=== PATIENT | male | born 1950 | race Caucasian/White ===

== ENCOUNTER 2021-11-11 09:56 | Inpatient (IN) ==
[2021-11-11] MEDS ORDERED: METOPROLOL TARTRATE 1 MG/ML VIAL IV STA ×2 (10:21→11:13)
[2021-11-11 10:32] LABS: Basophils # (auto) 0.08 K/uL (0-0.2); Basophils % (auto) 1.1 %; Eosinophils # (auto) 0.15 K/uL (0-0.50); Eosinophils % (auto) 2.1 %; Hematocrit (blood only) 43.1 % (40.1-51.0); Hemoglobin 14.3 g/dl (14.0-18.0); Immature Granulocytes # (auto) 0.01 K/uL (0.00-0.02); Immature Granulocytes % (auto) 0.1 %; Lymphocytes # (auto) 1.45 K/uL (1.2-3.4); Lymphocytes % (auto) 20.5 %; Mean Corpuscular Hemoglobin 29.7 pg (25.0-34.0); Mean Corpuscular Hgb Conc 33.2 g/dL (32.0-36.0); Mean Corpuscular Volume 89.6 fL (80.0-100.0); Mean Platelet Volume 11.4 fL (9.4-12.4); Monocytes # (auto) 0.51 K/uL (0.24-0.82); Monocytes % (auto) 7.2 %; Neutrophils # (auto) 4.89 K/uL (1.4-6.5); Platelet Count 239 K/uL (130-400); RDW Standard Deviation 42.5 fL (36.4-46.3); Red Blood Count 4.81 M/uL (4.63-6.08); White Blood Count 7.09 K/ul (4.8-10.8)
[2021-11-11 10:44] LABS: Partial Thromboplastin Time 28.2 Seconds (21.0-31.0); Prothrombin Time 10.7 Seconds (9.0-12.0)
[2021-11-11 10:48] LABS: Albumin Level 4.5 gm/dl (3.4-5.0); BUN Creatinine Ratio 29.5 (10-20); Bilirubin,Total 0.6 mg/dl (0.2-1.0); Calcium 9.2 mg/dl (8.5-10.1); Creatinine Clr Calc Pharmacy 101.8 ml/min; Est GFR (African American) 114.8 ml/min; Est GFR (Non-African American) 99.1 ml/min; Globulin 2.2 gm/dl (2.5-4.0); Magnesium 2.1 mg/dl (1.7-2.4); Potassium 4.4 mmol/L (3.5-5.1); Total Protein 6.7 gm/dl (6.0-8.3)
[2021-11-11 10:52] LABS: Troponin I High Sensitivity 7.6 pg/ml (0-20)
[2021-11-11] MEDS ORDERED: SODIUM CHLORIDE 0.9% 1000ML 250 ML IV ONE (11:13)
[2021-11-11] MEDS ORDERED: Heparin IV Adult Wt-Based Low-Dose WITH Bolus Protocol IV STA (11:42)
[2021-11-11] MEDS ORDERED: HEPARIN SOD (PORCINE) 1000 UNIT/ML IV ONE (11:57)
[2021-11-11] MEDS ORDERED: HEPARIN SODIUM/DEXTROSE 25,000 UNITS/500 ML BAG IV SCH (12:00)
--- NOTE | 2021-11-11 12:31 | History & Physical Report ---
Date of Service November 11, 2021 Assessment & Plan (1) Atrial flutter with rapid ventricular response: (2) Paroxysmal atrial fibrillation: Plan: Patient is 71 y/o M with PMH paroxysmal atrial fibrillation s/p pulmonary vein isolation ablation in 06/2013 and 05/2014 no longer on anticoagulation presented to ER with c/o rapid heart rate x 1 day. Reports chronic exertional SOB. Denies CP, current SOB, dizziness In ER Pulse in 140's, BP 121/78. Was given total 5mg metoprolol tartrate IV with continued HR 140 and BP 92/77. No significant electrolyte abnormality and TSH WNL. EKG appears to be atrial flutter, rate 145 At rest patient denies symptoms Heparin drip started Will start Cardizem drip with pt's continued elevated HR CXR pending. Pt initially denied Echo Lyme titer Cardiology consult CBC, BMP in am History of Present Illness Chief Complaint: Rapid heart rate Primary Care Provider: Jann Wilde MD Patient is 71 y/o M with PMH paroxysmal atrial fibrillation s/p pulmonary vein isolation ablation in 06/2013 and 05/2014 presented to ER with c/o rapid heart rate x 1 day. Patient states is physically active and works in the [employer]. States yesterday he had to drive a lot and was feeling tired so he stopped and got a large soda. Last night started feeling like his heart was racing and repo rts checked his pulse and it was 145. Denies any associated dizziness, chest pain, shortness of breath. Does report SOB with walking up hills but denies any current SOB or increased SOB since elevated heart rate. He has tried breathing techniques and Valsalva maneuver without relief. He also states that he took total 3 OTC magnesium tabs (unknown dose) since yesterday and one potassium tablet he had from previous prescription in case his electrolytes were low. He reports past history of rapid a-fib and in past has been more symptomatic with sensation of tachyarrhythmia and fatigue. He is not on any prescription medication. Previously on metoprolol 12.5mg BID however patient reports has not taken for years. States tick bite in spring but denies any recent known tick bites. Denies fever/chills, diaphoresis, N/V/D/C, PEOPLES, dizziness, syncope, vision changes, neck pain, CP, orthopnea, In cough, sore throat, choking, otalgia, rhinorrhea, abdominal pain, paresthesias, weakness, extremity weakness, extremity edema, rashes, urinary symptoms. In ER Pulse in 140's, BP 121/78. Was given total 5mg metoprolol tartrate IV with continued HR 140 and BP 92/77. At rest patient denies symptoms. No significant electrolyte abnormality and TSH WNL. Allergies Allergy/AdvReac Type Severity Reaction Status Date / Time No Known Allergies Allergy Unknown Verified 02/23/19 10:22 Past Med/Surg History Medical History (Updated 11/11/21 @ 13:31 by Tamara Witt PA-C) Paroxysmal atrial fibrillation Surgical History (Updated 11/11/21 @ 13:32 by Tamara Witt PA-C) History of appendectomy Hx of tonsillectomy S/P ablation of atrial flutter Family History (Updated 11/11/21 @ 13:31 by Tamara Witt PA-C) Father Stroke Diabetes Prostate cancer Mother Hypertension Social History (Updated 11/11/21 @ 13:31 by Tamara Witt PA-C) Smoking Status: Never smoker Hx Alcohol Use: No Hx Substance Use: No Preferred Language: Nepalese Feels Safe at Home: Yes Review of Systems Review of Systems: All systems reviewed & are unremarkable except as noted in HPI & below Physical Exam Physical Exam: General: no distress, thin elderly male Head: normocephalic, atraumatic Eyes: PERRL, EOM's intact, conjunctiva non-injected, anicteric ENT: normal inspection external ears, nose, mucous membranes moist Neck: supple, trachea midline Lungs: clear, no respiratory distress, no wheezing/rhonchi/rales CV: tachycardia, rate 140, regular rhythm, no pretibial edema Abd: normal BS, soft, non-tender Ext: no cyanosis, no calf tenderness Neuro: A&O x 3, no focal deficits noted, normal affect Skin: warm, dry Results & Data Results & Data ([facility]) Vital Signs (Past 12 Hours) Vital Signs Temp Pulse Pulse Resp BP BP Pulse Ox 11/11/21 12:20 139 H 18 92/77 L 98 11/11/21 11:35 105 H 18 91/60 L 98 11/11/21 10:58 140 H 18 100/83 98 08/31/22 10:22 143 H 20 132/98 99 11/11/21 10:22 99 11/11/21 10:18 11/11/21 09:59 36.1 C L 145 H 20 121/78 98 O2 Del Method 11/11/21 12:20 Room Air 11/11/21 11:35 Room Air 11/11/21 10:58 Room Air 11/11/21 10:22 Room Air 11/11/21 10:22 Room Air 11/11/21 10:18 Room Air 11/11/21 09:59 Room Air Laboratory Results Short CBC 11/11/21 Range/Units 10:08 WBC 7.09 (4.8-10.8) K/ul Hgb 14.3 (14.0-18.0) g/dl Hct 43.1 (40.1-51.0) % Plt Count 239 (130-400) K/uL BMP 11/11/21 10:08 Sodium 139 Potassium 4.4 Chloride 105 Carbon Dioxide 28 BUN 18 Creatinine 0.61 Glucose 88 Calcium 9.2 Liver Function 11/11/21 Range/Units 10:08 Total Bilirubin 0.6 (0.2-1.0) mg/dl AST 21 (13-39) U/L ALT 14 (7-52) U/L Alkaline Phosphatase 79 (34-104) U/L Albumin 4.5 (3.4-5.0) gm/dl Code Status & VTE Plan VTE Prophylaxis Plan VTE Prophylaxis will be ordered: Yes Supervising Physician Co-Signing Physician Notes Attending addendum: The patient was seen and examined in the emergency room. He is a 71 y/o M with PMH paroxysmal atrial fibrillation s/p pulmonary vein isolation ablation in 06/2013 and 05/2014 and has not been on any anticoagulation and other medications for the last 3 years. Has been complaining of shortness of breath with exertion and weakness for about a day or 2 and noted to have atrial flutter with rapid ventricular rate in the emergency room He denies any palpitation, chest pain, dizziness, no swelling of the legs and no shortness of breath at rest On examination Lying in bed comfortably Hemodynamically stable with blood pressure on the lower side at around 100 systolic Chest-increasing anteroposterior diameter. Clear to auscultate bilaterally Heart-S1-S2, regular with tachycardia Abdomen-benign Extremities-no edema His admission labs, EKG reviewed. Chest x-ray is pending Has a flutter with RVR with history of PAF status post ablation in around 2013 He has been started with intravenous heparin and also intravenous Cardizem and beta-jayshree to control heart rate Cardiology has been consulted Reviewed with assessment and plan as outlined above by LEONEL Dang Dr
--- NOTE | 2021-11-11 13:10 | Emergency Department Note ---
Impression & Plan Atrial flutter with rapid ventricular response ED Provider Note INFORMANT: Patient ED PROVIDER(S): Ronaldo Christopher MD CHIEF COMPLAINT: Tachycardia PLAN: Disposition: Admitted Condition: Good Outpatient prescription management: none Referral: None MEDICAL DECISION MAKING: Patient present because of tachycardia. He has a history of atrial fibrillation. ECG was performed and cardiac monitoring. It appeared he was in atrial flutter. He was given 2 doses of IV Lopressor as well as normal saline. He did achieve better rate control and had a variable block flutter. His CBC, chemistry panel, troponin and magnesium were unremarkable. I did consult with [facility] cardiology, Dr. Cervantes. He recommended IV heparin and admission by the hospitalist service for evaluation and rhythm control. I did order the IV heparin. Patient was updated and in agreement with the plan. Consultation was placed with the [facility] hospitalist service. Patient was evaluated in the ER admitted for further management. Triage Nursing notes reviewed and agree them. Vital Signs: reviewed and remarkable for tachycardia Differential diagnosis: Premature contractions, electrolyte abnormality, cardiac dysrhythmia, thyroid dysfunction, pulmonary embolism, infection, gastrointestinal, as well as other pathologies. Diagnostics interpreted by me: ECG: Twelve-lead ECG reveals atrial flutter at [address] elevation. No PVCs. Normal axis. Cardiac Monitoring: Cardiac monitoring ordered by me: The patient was placed on continuous cardiac monitoring and observed. It revealed atrial flutter with variable block and occasional PVCs at 113 bpm. Imaging studies: Patient refused chest x-ray HPI: The patient is a 71year old male with a history of atrial fibrillation and a ablation x2 who presents to the Emergency Room with complaints of tachycardia. This started possibly yesterday and is persistent. Patient notes his heart rate was around 145 yesterday today. The patient also notes the following associated symptoms, minimal shortness of breath. The patient has taken no medication for relieving factors. Current pain is rated as 0/10. Denies recent illnesses. Pt denies LOC, headache, fevers, chills, diaphoresis, visual changes, neck pain, chest pain, nausea, vomiting, abdominal pain, back pain, melena, hematochezia, urinary symptoms, numbness, weakness, lymphadenopathy, rash, or other complaints. ROS: See above HPI for pertinent positives & negatives. A total of 10 systems reviewed and were otherwise negative. PAST MEDICAL HISTORY:See Below , atrial fibrillation PAST SURGICAL HISTORY:See Below, ablation FAMILY HISTORY:See Below SOCIAL HISTORY:See Below, employed as a [employer] HOME MEDICATIONS:See Below ALLERGIES:See Below VITALS:See Below PHYSICAL EXAMINATION: GENERAL: Awake, alert, well-appearing, in no distress HENT: Normocephalic, atraumatic. Oropharynx unremarkable. EYES: Normal conjunctiva. Sclera non-icteric. NECK: Inspection normal. Non-tender. Supple. No nuchal rigidity. FROM. No masses. RESPIRATORY: Clear to auscultation. No wheezes. No rales. Normal respiratory effort. CARDIAC: Tachycardic rate. Regular rhythm. No murmurs. No rubs. Extremities warm and well perfused. Pulses equal. No JVD. GI: Soft, non-distended. No tenderness to palpation. No rebound or guarding. No masses. RECTAL: Deferred. MUSCULOSKELETAL: Atraumatic. Chest examination reveals no tenderness. The back is symmetrical on inspection without obvious abnormality. There is no CVA tenderness to palpation. No joint edema. LOWER EXTREMITIES: Calves are equal size bilaterally and non-tender. No edema. No discoloration. NEURO: Normal sensorium. No sensory or motor deficits noted. SKIN: No rash or jaundice noted. CRITICAL CARE: I have personally spent greater than 35 minutes of critical care time in the direct management of this patient. This includes bedside care, interpretation of diagnostic studies, and testing, discussion with consultants, patient, and other required patient management activities. These minutes are in excess of all separately billable procedures. Ronaldo Christopher MD Past Med/Surg History Medical History (Updated 11/11/21 @ 13:31 by Tamara Witt PA-C) Paroxysmal atrial fibrillation Surgical History (Updated 11/11/21 @ 13:32 by Tamara Witt PA-C) History of appendectomy Hx of tonsillectomy S/P ablation of atrial flutter Family History (Updated 11/11/21 @ 13:31 by Tamara Witt PA-C) Father Stroke Diabetes Prostate cancer Mother Hypertension Social History (Updated 11/11/21 @ 13:31 by Tamara Witt PA-C) Smoking Status: Never smoker Hx Alcohol Use: Yes Hx Substance Use: No Preferred Language: Australian Retail Supervisor Required: No Beliefs That Will Affect Care: None Current Living Situation: Significant Other Other Information That Helps Us Care for You: No Feels Safe at Home: Yes Allergies Allergies Allergy/AdvReac Type Severity Reaction Status Date / Time No Known Allergies Allergy Unknown Verified 02/23/19 10:22 Home Meds Previous Rx's Medication Instructions Recorded cyclobenzaprine 5 mg tablet 5 mg PO TID PRN muscle spasm #10 06/21/20 tabs Results & Data (ED) Vital Signs Vital Signs - 24 hr 11/11/21 09:59 11/11/21 10:18 11/11/21 10:22 Temperature 36.1 C L Temperature Source Temporal Artery Scan Pulse Rate 145 H Pulse Rate [Apical] Pulse Rhythm Regular Pulse Strength Normal Respiratory Rate 20 Respiratory Effort / Characteristics Non-Labored Spontaneous Non-Labored Spontaneous Respiratory Depth Normal Normal Respiratory Pattern Regular Regular Blood Pressure 121/78 Blood Pressure [Right Arm] Blood Pressure Mean 92 Blood Pressure Mean [Right Arm] Blood Pressure Position Sitting Blood Pressure Position [Right Arm] Pulse Oximetry 98 99 Oxygen Delivery Method Room Air Room Air Room Air Sepsis Recent Fever Within 48 Hours No Sepsis New/Unexplained Change in Mental Status No Sepsis Action Taken by Nursing No Action Required 11/11/21 10:22 11/11/21 10:58 11/11/21 11:35 Temperature Temperature Source Pulse Rate Pulse Rate [Apical] 143 H 140 H 105 H Pulse Rhythm Pulse Strength Respiratory Rate 20 18 18 Respiratory Effort / Characteristics Non-Labored Spontaneous Non-Labored Spontaneous Non-Labored Spontaneous Respiratory Depth Normal Normal Normal Respiratory Pattern Blood Pressure Blood Pressure [Right Arm] 132/98 100/83 91/60 L Blood Pressure Mean Blood Pressure Mean [Right Arm] 109 88 70 Blood Pressure Position Blood Pressure Position [Right Arm] Lying Pulse Oximetry 99 98 98 Oxygen Delivery Method Room Air Room Air Room Air Sepsis Recent Fever Within 48 Hours Sepsis New/Unexplained Change in Mental Status Sepsis Action Taken by Nursing 11/11/21 12:20 Temperature Temperature Source Pulse Rate Pulse Rate [Apical] 139 H Pulse Rhythm Pulse Strength Respiratory Rate 18 Respiratory Effort / Characteristics Non-Labored Spontaneous Respiratory Depth Normal Respiratory Pattern Blood Pressure Blood Pressure [Right Arm] 92/77 L Blood Pressure Mean Blood Pressure Mean [Right Arm] 82 Blood Pressure Position Blood Pressure Position [Right Arm] Lying Pulse Oximetry 98 Oxygen Delivery Method Room Air Sepsis Recent Fever Within 48 Hours Sepsis New/Unexplained Change in Mental Status Sepsis Action Taken by Nursing Laboratory Data Result diagrams: 11/11/21 10:08 11/11/21 10:08 Lab Results 11/11/21 11/11/21 11/11/21 Range/Units 10:08 10:08 10:08 WBC 7.09 (4.8-10.8) K/ul RBC 4.81 (4.63-6.08) M/uL Hgb 14.3 (14.0-18.0) g/dl Hct 43.1 (40.1-51.0) % MCV 89.6 (80.0-100.0) fL MCH 29.7 (25.0-34.0) pg MCHC 33.2 (32.0-36.0) g/dL RDW Std Deviation 42.5 (36.4-46.3) fL RDW Coeff of Quynh 13.0 (11.5-14.5) % Plt Count 239 (130-400) K/uL MPV 11.4 (9.4-12.4) fL Immature Gran % (Auto) 0.1 % Neut % (Auto) 69.0 % Lymph % (Auto) 20.5 % Island % (Auto) 7.2 % Eos % (Auto) 2.1 % Baso % (Auto) 1.1 % Neut # (Auto) 4.89 (1.4-6.5) K/uL Lymph # (Auto) 1.45 (1.2-3.4) K/uL Island # (Auto) 0.51 (0.24-0.82) K/uL Eos # (Auto) 0.15 (0-0.50) K/uL Baso # (Auto) 0.08 (0-0.2) K/uL Immature Gran # (Auto) 0.01 (0.00-0.02) K/uL PT 10.7 (9.0-12.0) Seconds INR 1.0 (0.9-1.1) APTT 28.2 (21.0-31.0) Seconds PTT Ratio 1.0 Sodium 139 (136-145) mmol/L Potassium 4.4 (3.5-5.1) mmol/L Chloride 105 (98-107) mmol/L Carbon Dioxide 28 (21-32) mmol/L Anion Gap 6 (3-11) BUN 18 (6-23) mg/dl Creatinine 0.61 (0.6-1.4) mg/dl Est Cr Clr Drug Dosing 101.8 ml/min Est GFR ( Amer) 114.8 ml/min Est GFR (Non-Af Amer) 99.1 ml/min BUN/Creatinine Ratio 29.5 H (10-20) Glucose 88 (70-99(Fasting)) mg/dl Calcium 9.2 (8.5-10.1) mg/dl Magnesium 2.1 (1.7-2.4) mg/dl Total Bilirubin 0.6 (0.2-1.0) mg/dl AST 21 (13-39) U/L ALT 14 (7-52) U/L Alkaline Phosphatase 79 (34-104) U/L Troponin I High Sens 7.6 (0-20) pg/ml Total Protein 6.7 (6.0-8.3) gm/dl Albumin 4.5 (3.4-5.0) gm/dl Globulin 2.2 L (2.5-4.0) gm/dl Albumin/Globulin Ratio 2.0 (0.9-2) TSH (0.300-4.500) uIu/ml Lyme Disease IgG Ab (Negative) Lyme Disease IgM Ab (Negative) SARS-CoV-2, RNA, NAAT (NEGATIVE) 11/11/21 11/11/21 11/11/21 Range/Units 10:08 10:08 10:29 WBC (4.8-10.8) K/ul RBC (4.63-6.08) M/uL Hgb (14.0-18.0) g/dl Hct (40.1-51.0) % MCV (80.0-100.0) fL MCH (25.0-34.0) pg MCHC (32.0-36.0) g/dL RDW Std Deviation (36.4-46.3) fL RDW Coeff of Quynh (11.5-14.5) % Plt Count (130-400) K/uL MPV (9.4-12.4) fL Immature Gran % (Auto) % Neut % (Auto) % Lymph % (Auto) % Island % (Auto) % Eos % (Auto) % Baso % (Auto) % Neut # (Auto) (1.4-6.5) K/uL Lymph # (Auto) (1.2-3.4) K/uL Island # (Auto) (0.24-0.82) K/uL Eos # (Auto) (0-0.50) K/uL Baso # (Auto) (0-0.2) K/uL Immature Gran # (Auto) (0.00-0.02) K/uL PT (9.0-12.0) Seconds INR (0.9-1.1) APTT (21.0-31.0) Seconds PTT Ratio Sodium (136-145) mmol/L Potassium (3.5-5.1) mmol/L Chloride (98-107) mmol/L Carbon Dioxide (21-32) mmol/L Anion Gap (3-11) BUN (6-23) mg/dl Creatinine (0.6-1.4) mg/dl Est Cr Clr Drug Dosing ml/min Est GFR ( Amer) ml/min Est GFR (Non-Af Amer) ml/min BUN/Creatinine Ratio (10-20) Glucose (70-99(Fasting)) mg/dl Calcium (8.5-10.1) mg/dl Magnesium (1.7-2.4) mg/dl Total Bilirubin (0.2-1.0) mg/dl AST (13-39) U/L ALT (7-52) U/L Alkaline Phosphatase (34-104) U/L Troponin I High Sens (0-20) pg/ml Total Protein (6.0-8.3) gm/dl Albumin (3.4-5.0) gm/dl Globulin (2.5-4.0) gm/dl Albumin/Globulin Ratio (0.9-2) TSH 3.431 (0.300-4.500) uIu/ml Lyme Disease IgG Ab Positive A (Negative) Lyme Disease IgM Ab Negative (Negative) SARS-CoV-2, RNA, NAAT NEGATIVE (NEGATIVE) Administered Medications Heparin Sodium/Dextrose (Heparin Sodium/Dextrose) 25,000 units in 500 mls @ 16 mls/hr IV .Q24H [facility]; Protocol Stop: 12/11/21 11:59 Last Admin: 11/11/21 12:21 Dose: 800 units/hr, 16 mls/hr Documented By: DAVID Co-signed By: DAVID(2) Diltiazem HCl 125 mg/ Dextrose 125 mls @ 5 mls/hr IV .Q24H [facility]; Protocol Stop: 12/11/21 13:29 Last Admin: 11/11/21 14:39 Dose: 5 mg/hr, 5 mls/hr Documented By: ALONSO Co-signed By: AM Discontinued Medications Heparin Sodium (Porcine) (Heparin Sod (Porcine) 1000 Unit/Ml) 1 units IV NOW ONE Stop: 11/11/21 11:58 Last Admin: 11/11/21 12:23 Dose: 4,000 units Documented By: DAVID Co-signed By: DAVID(2) Heparin Sodium/Dextrose (Heparin Iv Adult Wt-Based Low-Dose With Bolus Protocol) 1 each IV NOW STA; Protocol Stop: 11/11/21 11:43 Last Admin: 11/11/21 12:23 Dose: Not Given Documented By: DAVID Sodium Chloride (Nss 1000ml) 250 mls @ 999 mls/hr IV .Q16M ONE Stop: 11/11/21 11:28 Last Infusion: 11/11/21 11:35 Dose: 0 mls/hr Documented By: Admin: 11/11/21 11:17 Dose: 999 mls/hr Documented By: DAVID Metoprolol Tartrate (Metoprolol Tartrate 1 Mg/Ml Vial) 2.5 mg IV NOW STA Stop: 11/11/21 10:22 Last Admin: 11/11/21 10:29 Dose: 2.5 mg Documented By: DAVID Metoprolol Tartrate (Metoprolol Tartrate 1 Mg/Ml Vial) 2.5 mg IV NOW STA Stop: 11/11/21 11:14 Last Admin: 11/11/21 11:17 Dose: 2.5 mg Documented By: DAVID Discharge Plan Visit Data Chief Complaint: Tachycardia Stated Complaint: 140 BPM HEART RATE ED Provider: Ronaldo Christopher Discharge Problem: Atrial flutter with rapid ventricular response Patient Disposition: Admitted As Inpatient Discharge Instructions Interventions: ED Discharge Assessment Last Done: 11/11/21 13:00
[2021-11-11] MEDS ORDERED: STAT IV Infusion **Titration per Protocol STA (13:21)
[2021-11-11] MEDS ORDERED: dilTIAZem HCL 125 MG in DEXTROSE 5% 100 ML IV SCH (13:30)
[2021-11-11] MEDS ORDERED: POLYETHYLENE (MIRALAX) 17 GM PACK PO PRN (14:37)
[2021-11-11] MEDS ORDERED: ACETAMINOPHEN 325 MG TAB PO PRN (14:37)
[2021-11-11] MEDS ORDERED: ONDANSETRON INJ 2 MG/ML 2 ML VIAL IV PRN (14:37)
[2021-11-11 14:54] LABS: Lyme Ab IgM w/WB Rflx Negative (Negative)
[2021-11-11 15:00] LABS: Lyme Ab IgG w/WB Rflx Positive (Negative)
[2021-11-11] MEDS ORDERED: PNEUMOCOCCAL POLYSACCHARIDES 25 MCG/0.5 ML VIAL/SYR IM ONE (15:07)
--- NOTE | 2021-11-11 15:36 | Cardiology Consultation ---
Date of Consultation November 11, 2021 Assessment & Plan (1) Atrial flutter with rapid ventricular response: (2) Paroxysmal atrial fibrillation: (3) Cardiomyopathy: Plan The pathophysiology and treatment options for atrial flutter were discussed with at great lengths. Given his reduced LV systolic function I suspect that he is likely been in this for quite some time and is at high risk of having a left atrial thrombus. So at this time, I believe most prudent course of action would be to get him rate controlled and anticoagulated. He is not overly symptomatic at this time with the flutter and think he should be anticoagulated for 30 days and seen by our electrophysiology colleagues as an outpatient to discuss an atrial flutter ablation after the 30-day lolita. He is in agreement with this plan. I will change his beta-jayshree to evidence-based beta-jayshree in the a.m. after seeing how he responds to 25 mg of metoprolol tartrate this evening. His heparin will be continued and we will change to Eliquis in the a.m. Cardizem drip should be titrated to off. History of Present Illness Reason for Consultation: atrial flutter with rvr Requesting Physician: WENDY Attending Physician: Jermaine Waters MD History of Present Illness It was my pleasure to see in cardiac consultation today November 11, 2021. He is a very pleasant 71-year-old gentleman who was previously following with us in the cardiology clinic for his history of atrial fibrillation status post ablation x2 at the [facility]. He has been asymptomatic and he believes in normal sinus rhythm since 2016 and has not needed to be seen since. He presented to [facility] emergency department after checking his pulse and feeling that his heart was racing. He notes that he started a new job this summer and has been doing a lot of driving, the other day he had a long drive ahead of him and he uncharacteristically had an extra cup of coffee in the afternoon. Afterwards he states he just did not feel right and was more fatigued than normal. Later on that night he checked his pulse and noted to be in the 140s. Upon presentation emergency department he was found to be in atrial flutter with rapid ventricular response. Upon further questioning, he admits that he has been short of breath with exertion over the last several months. He initially chalked this up to working outside during the hot summer months with a new job. He denies any other complaints of chest pain, palpitations, lightheadedness or dizziness. Past medical history: 1. Paroxysmal AFib/flutter. 2. Status post pulmonary vein isolation ablation in June 2013 with redo May 2014 with now long-term success. Allergies Allergy/AdvReac Type Severity Reaction Status Date / Time No Known Allergies Allergy Unknown Verified 02/23/19 10:22 Patient History Medical History Paroxysmal atrial fibrillation Surgical History History of appendectomy Hx of tonsillectomy S/P ablation of atrial flutter Family History Father Stroke Diabetes Prostate cancer Mother Hypertension Social History Smoking Status: Never smoker Hx Alcohol Use: Yes Hx Substance Use: No Preferred Language: Faroese Communication Ability: Effective Yarn Spinner Required: No Beliefs That Will Affect Care: None Current Living Situation: Significant Other How many Children do You have: 1 Other Information That Helps Us Care for You: No Feels Safe at Home: Yes Assistive Devices: None Results & Data ([facility]) Vital Signs (Past 12 Hours) Vital Signs Temp Pulse Pulse Resp BP BP Pulse Ox 11/11/21 14:57 11/11/21 14:57 36.8 C 112 H 18 110/66 98 11/11/21 12:58 138 H 18 103/79 98 11/11/21 12:20 139 H 18 92/77 L 98 11/11/21 11:35 105 H 18 91/60 L 98 11/11/21 10:58 140 H 18 100/83 98 11/11/21 10:22 143 H 20 132/98 99 11/11/21 10:22 99 11/11/21 10:18 11/11/21 09:59 36.1 C L 145 H 20 121/78 98 O2 Del Method 11/11/21 14:57 Room Air 11/11/21 14:57 Room Air 11/11/21 12:58 Room Air 11/11/21 12:20 Room Air 11/11/21 11:35 Room Air 11/11/21 10:58 Room Air 11/11/21 10:22 Room Air 11/11/21 10:22 Room Air 11/11/21 10:18 Room Air 11/11/21 09:59 Room Air
[2021-11-11] MEDS ORDERED: METOPROLOL TARTRATE 25 MG TAB PO SCH ×2 (15:45→17:04)
[2021-11-11 18:57] LABS: Partial Thromboplastin Ratio 1.5; Partial Thromboplastin Time 41.3 Seconds (21.0-31.0)
[2021-11-11] MEDS ORDERED: MELATONIN 3 MG TAB PO PRN (21:27)
--- NOTE | 2021-11-11 23:17 | Electrocardiogram Report ---
Test Reason : Blood Pressure : / mmHG Vent. Rate : 145 BPM Atrial Rate : 145 BPM P-R Int : 136 ms QRS Dur : 106 ms QT Int : 294 ms P-R-T Axes : 059 -71 082 degrees QTc Int : 456 ms Possible Atrial flutter with rapid ventricular response Incomplete right bundle branch block Left anterior fascicular block Abnormal ECG When compared with ECG of 29-OCT-2013 20:10, Vent. rate has increased BY 72 BPM Incomplete right bundle branch block is now Present Atrial flutter has replaced Sinus rhythm Confirmed by Stanislaw Clay ([id number]) on 11/11/2021 11:16:45 PM Referred By: ED Confirmed By:Stanislaw Clay
[2021-11-11] MEDS ORDERED: LORATADINE 10 MG TAB PO ONE (23:42)
[2021-11-12 02:23] LABS: Hemoglobin 12.8 g/dl (14.0-18.0); Mean Corpuscular Hemoglobin 29.9 pg (25.0-34.0); Mean Corpuscular Hgb Conc 32.8 g/dL (32.0-36.0); Mean Corpuscular Volume 91.1 fL (80.0-100.0); Mean Platelet Volume 11.7 fL (9.4-12.4); Platelet Count 181 K/uL (130-400); RDW Coefficient of Variation 13.2 % (11.5-14.5); RDW Standard Deviation 43.5 fL (36.4-46.3); Red Blood Count 4.28 M/uL (4.63-6.08); White Blood Count 5.76 K/ul (4.8-10.8)
[2021-11-12 02:38] LABS: Partial Thromboplastin Ratio 1.3; Partial Thromboplastin Time 36.8 Seconds (21.0-31.0)
[2021-11-12 02:51] LABS: BUN Creatinine Ratio 27.6 (10-20); Calcium 8.5 mg/dl (8.5-10.1); Est GFR (African American) 117.2 ml/min; Est GFR (Non-African American) 101.1 ml/min; Potassium 3.9 mmol/L (3.5-5.1)
[2021-11-12] MEDS ORDERED: HEPARIN SOD (PORCINE) 1000 UNIT/ML IV ONE (03:00)
[2021-11-12] MEDS ORDERED: METOPROLOL SUCC 50MG EXT REL TAB PO SCH (09:00)
[2021-11-12 10:54] LABS: Partial Thromboplastin Ratio 1.8
[2021-11-12] MEDS ORDERED: APIXABAN 5 MG TABLET PO SCH (11:00)
[2021-11-12 11:05] LABS: Partial Thromboplastin Time 50.3 Seconds (21.0-31.0)
--- NOTE | 2021-11-12 12:40 | Cardiology Progress Note ---
Date of Service November 12, 2021 Assessment & Plan (1) Atrial flutter with rapid ventricular response: (2) Paroxysmal atrial fibrillation: (3) Cardiomyopathy: Plan The pathophysiology and treatment options for atrial flutter were discussed with at great lengths. Given his reduced LV systolic function I suspect that he is likely been in this for quite some time and is at high risk of having a left atrial thrombus. So at this time, I believe most prudent course of action would be to get him rate controlled and anticoagulated. He is not overly symptomatic at this time with the flutter and think he should be anticoagulated for 30 days and seen by our electrophysiology colleagues as an outpatient to discuss an atrial flutter ablation after the 30-day lolita. He is in agreement with this plan. He remains asymptomatic with rates in the 70s so okay to discharge to home. Discharge home on Eliquis 5 mg p.o. twice daily along with metoprolol succinate 50 mg daily. My office will call to arrange follow-up with electrophysiology in 2 weeks to discuss flutter ablation Admission and Anticipated Discharge Date Admission Date: November 11, 2021 Subjective Patient seen and examined. Chart reviewed. Telemetry reviewed. States he feels well without any complaints overnight. Review of Systems Review of Systems: All systems reviewed & are unremarkable except as noted in HPI & below Physical Exam Physical Exam: General: Awake, alert and oriented x 3. No acute distress. HEENT: Normocephalic, atraumatic. Pupils equal, round and reactive to light and accommodation. Extraocular muscles are intact. Anicteric sclera. Moist mucous membranes. Neck: No JVD. No bruit. Cardiovascular: irregularly irregular, unable to appreciate murmur, rub or gallop. Pulmonary: Clear to auscultation bilaterally. No rales, rhonchi, or wheezing. Abdomen: Bowel sounds x 4, soft. No rebound, guarding or tenderness. No organomegaly. Extremities: No clubbing, cyanosis or edema. +2 pedal pulses bilaterally. Skin: Warm and dry. Results & Data ([facility]) Vital Signs (Past 12 Hours) Vital Signs Temp Pulse Pulse Resp BP Pulse Ox O2 Del Method 11/12/21 11:24 36.6 C 70 17 110/71 99 Room Air 11/12/21 07:43 36.7 C 72 16 106/65 98 Room Air 11/12/21 06:12 71 11/12/21 03:30 37.0 C 70 16 96 Room Air 11/12/21 04:05 36.4 C L 70 18 107/67 98 Room Air
--- NOTE | 2021-11-12 15:40 | Discharge Summary ---
Date of Service November 12, 2021 Admission HPI Per Admitting Provider Patient is 71 y/o M with PMH paroxysmal atrial fibrillation s/p pulmonary vein isolation ablation in 06/2013 and 05/2014 presented to ER with c/o rapid heart rate x 1 day. Patient states is physically active and works in the [employer]. States yesterday he had to drive a lot and was feeling tired so he stopped and got a large soda. Last night started feeling like his heart was racing and reports checked his pulse and it was 145. Denies any associated dizziness, chest pain, shortness of breath. Does report SOB with walking up hills but denies any current SOB or increased SOB since elevated heart rate. He has tried breathing techniques and Valsalva maneuver without relief. He also states that he took total 3 OTC magnesium tabs (unknown dose) since yesterday and one potassium tablet he had from previous prescription in case his electrolytes were low. He reports past history of rapid a-fib and in past has been more symptomatic with sensation of tachyarrhythmia and fatigue. He is not on any prescription medication. Previously on metoprolol 12.5mg BID however patient reports has not taken for years. States tick bite in spring but denies any recent known tick bites. Denies fever/chills, diaphoresis, N/V/D/C, PEOPLES, dizziness, syncope, vision changes, neck pain, CP, orthopnea, In cough, sore throat, choking, otalgia, rhinorrhea, abdominal pain, paresthesias, weakness, extremity weakness, extremity edema, rashes, urinary symptoms. In ER Pulse in 140's, BP 121/78. Was given total 5mg metoprolol tartrate IV with continued HR 140 and BP 92/77. At rest patient denies symptoms. No significant electrolyte abnormality and TSH WNL. Admission Exam Per Admitting Provider General: no distress, thin elderly male Head: normocephalic, atraumatic Eyes: PERRL, EOM's intact, conjunctiva non-injected, anicteric ENT: normal inspection external ears, nose, mucous membranes moist Neck: supple, trachea midline Lungs: clear, no respiratory distress, no wheezing/rhonchi/rales CV: tachycardia, rate 140, regular rhythm, no pretibial edema Abd: normal BS, soft, non-tender Ext: no cyanosis, no calf tenderness Neuro: A&O x 3, no focal deficits noted, normal affect Skin: warm, dry Principal Diagnosis (1) Atrial flutter with rapid ventricular response: (2) Paroxysmal atrial fibrillation: (3) Cardiomyopathy: Discharge Exam General: Awake, alert and oriented x 3. No acute distress. HEENT: Normocephalic, atraumatic. Pupils equal, round and reactive to light and accommodation. Extraocular muscles are intact. Anicteric sclera. Moist mucous membranes. Neck: No JVD. No bruit. Cardiovascular: irregularly irregular, unable to appreciate murmur, rub or gallop. Pulmonary: Clear to auscultation bilaterally. No rales, rhonchi, or wheezing. Abdomen: Bowel sounds x 4, soft. No rebound, guarding or tenderness. No organomegaly. Extremities: No clubbing, cyanosis or edema. +2 pedal pulses bilaterally. Skin: Warm and dry. Discharge Data Allergies Allergy/AdvReac Type Severity Reaction Status Date / Time No Known Allergies Allergy Unknown Verified 02/23/19 10:22 Consultations 11/11/21 13:07 Consult Cardiology Routine Hospital Course (1) Atrial flutter with rapid ventricular response: (2) Paroxysmal atrial fibrillation: (3) Cardiomyopathy: Plan Patient is 71 y/o M with PMH paroxysmal atrial fibrillation s/p pulmonary vein isolation ablation in 06/2013 and 05/2014 no longer on anticoagulation presented to ER with c/o rapid heart rate x 1 day. Patient denied any chest pain, shortness of breath, palpitation or dizziness. Patient was found to have a flutter with ventricular rate of 140s. Patient was started on Cardizem, heparin drip and admitted to telemetry floor. Overnight, patient's ventricular rate down trended to 70 bpm. 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 Cardiology was consulted; recommended to switch the patient to Eliquis 5 mg twice daily and Metroprolol succinate 50 mg once daily. He was asked to follow-up in 30 days after being anticoagulated for EP evaluation and possible ablation. Total Time Total Time Spent Total Time Spent (In Minutes): 35 Total Time Includes: Examination of the Patient, Discharge Planning, Medication Reconciliation, Communication With Other Providers and Other Discharge Plan Discharge Items Patient Disposition: Home - Self-Care Reason For Visit: TACHYCARDIA Discharge Diagnosis: 1) A.flutter 2) Tachycardia induced cardiomyopathy Activity: Resume your previous activity Non-emergency contact: Primary Care Provider Call non-emergency contact if: you have any medication questions and your symptoms worsen Follow-up/Referrals: Jann Wilde MD [Primary Care Provider] - (Date & Time 11/17/2021 11:00 AM Provider Jann Wilde MD Department General Internal Medicine [facility] ) Héctor Tolentino MD [Physician] - (Date & Time 11/25/2021 1:00 PM Provider Héctor Tolentino MD Department Cardiology, [facility] ) Diet: Regular Addtl Attending Provider Instructions: You are prescribed following medication; 1. Eliquis 5 mg twice daily. This is a blood thinner and is given to prevent stroke in patient with irregular heart rhythm. 2. Metoprolol succinate 50 mg once daily. Please follow-up with the primary care doctor as soon as possible. Please follow-up with cardiology electrophysiology for evaluation of irregular heart rhythm and possible ablation. Pending Studies at Discharge: No Stand-Alone Forms: [facility] [employer], Smoking Cessation Medications and DC Order Prescriptions: New Eliquis 5 mg Tablet 5 mg PO BID Qty: 60 0RF metoprolol succinate 50 mg Tablet Extended Release 24 Hr 50 mg PO QAM Qty: 30 0RF Discharge Orders: Discharge Order (Routine); Ordered 11/12/21 Ordered By: Osmin Fulton Admission Data Admit Date/Time: 11/11/21 12:29 Attending Provider: Osmin Fulton Admit Provider: Jermaine Waters Primary Care Provider: Jann Wilde Other Providers: Tyler Cervantes Other Interventions: Discharge Summary Assessment (RN) Last Done: 11/12/21 13:05
--- NOTE | 2021-11-12 17:49 | Electrocardiogram Report ---
Test Reason : Blood Pressure : / mmHG Vent. Rate : 070 BPM Atrial Rate : 280 BPM P-R Int : 000 ms QRS Dur : 104 ms QT Int : 438 ms P-R-T Axes : 084 -63 -03 degrees QTc Int : 473 ms Atrial flutter with 4:1 A-V conduction Left anterior fascicular block Abnormal ECG When compared with ECG of 11-NOV-2021 10:02, Vent. rate has decreased BY 75 BPM Incomplete right bundle branch block is no longer Present Confirmed by Cj Sutherland ([id number]) on 11/12/2021 5:49:05 PM Referred By: REFERRED SELF Confirmed By:Santi Sutherland
[2021-11-14 01:56] LABS: 18KDIGG Band REACTIVE; 23KDIGG Band NON-REACTIVE; 23KDIGM Band NON-REACTIVE; 28KDIGG Band NON-REACTIVE; 30KDIGG Band NON-REACTIVE; 39KDIGG Band NON-REACTIVE; 39KDIGM Band REACTIVE; 41KDIGG Band NON-REACTIVE; 41KDIGM Band NON-REACTIVE; 45KDIGG Band NON-REACTIVE; 58KDIGG Band NON-REACTIVE; 66KDIGG Band NON-REACTIVE; 93KDIGG Band NON-REACTIVE; Lyme Antibodies, WB IgG NEGATIVE (NEGATIVE); Lyme Antibodies, WB IgM NEGATIVE (NEGATIVE)
== END 2021-11-12 14:01 | disposition home or self-care (01) | DRG 310 ==
LOC: ED 09:56 → 2S 12:29 → SUATTDRO 12:29 → 2S 13:00